=== PATIENT | female | born 1995 | race Caucasian/White ===

== ENCOUNTER 2016-09-29 11:20 | Outpatient (CLI) | payer OTHER ==
[~2016-09-29] VITALS: Ht 157.5 cm; Wt 88.3 kg
[2016-09-29 11:50] VITALS: BP 115/68; PULSE 85; RESP 18; Ht 157.5 cm; Wt 88.3 kg
--- NOTE | 2016-09-29 12:15 | RADRPT ---
PROCEDURE: OB ultrasound for biophysical profile CLINICAL INDICATION: Post dates. TECHNIQUE: Multiple sonographic images of the pelvis were obtained. Transabdominal view of the gr avid uterus are available for review. The images were reviewed on a PACS workstation. COMPARISON: None FINDINGS: breathing movement = 2/2 tone = 2/2 motion = 2/2 Quantitative amniotic fluid volume = 2/2 CHRISTIANO = 9.9 cm Single live intrauterine with cardiac activity at 156 beats per minute. There is a anterior placenta without previa. IMPRESSION: 1. Single living intrauterine gestation in cephalic position. 2. Biophysical profile = 8. 3. CHRISTIANO = 9.9 cm. RPTAT: [facility] Physician Lobo Date Time Electronically viewed and signed by Irwin Darby Physician on 09/29/2016 12:14 /
--- NOTE | 2016-09-29 12:34 | RADRPT ---
PROCEDURE: US OB. CLINICAL INDICATION: Size and dates TECHNIQUE: Multiple sonographic images of the pelvis and gravid uterus were obtained. The images were reviewed on a PACS workstation. COMPARISON: No prior studies are available for comparison. FINDINGS: There is a single viable intrauterine gestation. Cardiac activity is present with 152 beats per min aldo. There is a vertex presentation. The placenta is anterior. There is no evidence for an abruption or placenta previa. Measurements were made in order to determine age. The results are as follows: BPD =9.6 cm HC =33.4 cm AC =36.2 cm FL =7.3 cm Estimated gestational age of approximately 38 weeks and 5 days based on ultrasound measurements. Clinical age: 40 weeks and 3 days. The estimated date of delivery is 10/08/16, based on ultrasound measurements. The EFW = 3702 g, 50%, based on LMP age. RPTAT: AA IMPRESSION: Single viable intrauterine gestation of approximately 38 weeks and 5 days based on ultrasound measu rements. Smaller than clinical age by approximately 2 weeks. .Abdi Patton MD, MD Date Time Electronically viewed and signed by .Abdi Patton MD, on 09/29/2016 12:33 .S/
== END 2016-09-29 13:12 | disposition home or self-care (01) ==
LOC: OBT 11:20 → L-D 11:20 → OBT 13:12
PROVIDERS: ATTEND Obstetrics & Gynecology
DX: O48.0 Post-term pregnancy (principal); Z3A.40 40 weeks gestation of pregnancy
CPT/HCPCS: 76815; 76818; Z7500; G0463

== ENCOUNTER 2016-09-30 17:00 | Inpatient (IN) | payer OTHER ==
[~2016-09-30] VITALS: Ht 157.5 cm; Wt 87.6 kg
[2016-09-30 17:52] VITALS: Ht 157.5 cm; Wt 87.6 kg
[2016-09-30 17:53] VITALS: BP 111/61; PULSE 77; RESP 18
[2016-09-30] MEDS ORDERED: OXYTOCIN 30 UNITS/LR 500 ML IV SCH ×3 (18:00→21:00)
[2016-09-30] MEDS ORDERED: METHYLERGONOVINE 0.2 MG INJ IM PRN (18:00)
[2016-09-30] MEDS ORDERED: IBUPROFEN 600 MG TAB PO PRN (18:00)
[2016-09-30] MEDS ORDERED: MISOPROSTOL 200 MCG TAB PR PRN (18:00)
[2016-09-30] MEDS ORDERED: CARBOPROST 250 MCG INJ IM PRN (18:00)
[2016-09-30] MEDS ORDERED: OXYTOCIN 30 UNITS/LR 500 ML IV PRN (18:00)
[2016-09-30] MEDS ORDERED: BUTORPHANOL 2 MG INJ IV PRN (18:00)
[2016-09-30] MEDS ORDERED: LIDOCAINE 1% (MPF) 30 ML INJ INJ PRN (18:00)
[2016-09-30] MEDS: LACTATED RINGER'S 1,000 ML IV SCH (18:16)
[2016-09-30 18:48] LABS: ADD SCAN DIFF NO
[2016-09-30 18:49] LABS: BASOPHILS % 0.1 % (0.0-2.0); EOSINOPHILS % 0.5 % (0.0-7.0); HEMATOCRIT 30.3 % (37.0-47.0); HEMOGLOBIN 9.8 g/dl (12.0-16.0); LYMPHOCYTES # 1.6 10^3/ul (0.8-2.9); LYMPHOCYTES % 20.8 % (15.0-51.0); MEAN CORPUSCULAR HEMOGLOBIN 27.2 pg (29.0-33.0); MEAN CORPUSCULAR HGB CONC 32.3 g/dl (32.0-37.0); MEAN CORPUSCULAR VOLUME 84.2 fl (82.0-101.0); MEAN PLATELET VOLUME 9.9 fl (7.4-10.4); MONOCYTE # 0.5 10^3/ul (0.3-0.9); MONOCYTES % 6.8 % (0.0-11.0); NEUTROPHIL # 5.4 10^3/ul (1.6-7.5); NEUTROPHILS % 71.1 % (39.0-77.0); PLATELET COUNT 239 10^3/UL (140-415); RED CELL DISTRIBUTION WIDTH 13.9 % (11.5-14.5); WHITE BLOOD COUNT 7.6 10^3/ul (4.8-10.8)
[2016-09-30 19:00] LABS: INR 0.84; PROTIME 11.5 Sec (12.2-14.2); PT RATIO 0.9
[2016-09-30 19:01] LABS: PARTIAL THROMBOPLASTIN TIME 24.6 Sec (25.0-35.0)
[2016-09-30 20:22] LABS: BARBITURATES Negative (NEGATIVE); BENZODIAZEPINES Negative (NEGATIVE); CANNABINOIDS Negative (NEGATIVE)
[2016-09-30 20:23] LABS: COCAINE Negative (NEGATIVE)
[2016-09-30 20:24] LABS: OPIATES Negative (NEGATIVE)
--- NOTE | 2016-09-30 22:36 | HP ---
Date/Time of Note Date/Time of Note DATE: 09/30/16 TIME: 22:28 OB - History Hx of Present Free Text/Dictation 21 yo P0 @ 39.6 wks came for IOL, secondary PROM Last Menstrual Period: Apr 21, 2016 Estimated Due Date: Sep 26, 2016 : 1 Para: 0 Care: Good Care Past Family/Social History * Past Medical, Surgical, Family and Obstetric Histories reviewed from chart. Blood Type: A+ Rubella: immune RPR/VDRL: Negative GBS Status: Negative HBsAG: Negative OB Admission Exam Vital Signs Vital Signs Vital Signs Date Time Temp Pulse Resp B/P Pulse Ox O2 Delivery O2 Flow Rate FiO2 09/30/16 17:53 98.3 77 18 111/61 Room Air Physical Exam HEENT: WNL Abdomen: WNL Cervical Dilatation: 1cm Effacement: 50% Station: -3 Membranes: Ruptured Amniotic Fluid: Clear Accelerations: Accelerations Present Decelerations: Late Decelarations Varibility: Moderate Contractions on Admission: 6-10 Minutes Apart Intensity: Mild Last 72 hours Lab Results CBC & BMP 09/30/16 18:10 OB Assessment/Plan Other Assessment: When patient first came in, she had been PROM'd since 6am. Her FHT had some occasional late decels with mod variability and intermittent accels. After continued observation, decelerations resolved, and pitocin was started. FHT is now Cat I Other plan: monitor FHT, if it continues to be Category I, continue to increase pitocin per protocol VEDA HEMPHILL MD Sep 30, 2016 22:36
[2016-09-30] MEDS: LACTATED RINGER'S 1,000 ML IV PRN (23:25)
[2016-09-30] MEDS ORDERED: FENTAnyl 2MCG/ML-ROPIV 0.2% 100 ML ONE (23:37)
[2016-10-01] MEDS: LACTATED RINGER'S 1,000 ML IV PRN (00:22)
[2016-10-01] MEDS ORDERED: ONDANSETRON 4 MG INJ IV PRN ×3 (00:30→21:00)
[2016-10-01] MEDS ORDERED: HYDROmorphONE 1 MG/ML SYG IV PRN ×5 (00:30→21:00)
[2016-10-01] MEDS ORDERED: DIPHENHYDRAMINE 50 MG INJ IV PRN ×3 (00:30→21:00)
[2016-10-01] MEDS ORDERED: NALOXONE (0.4 MG/ML) INJ IV PRN ×2 (00:30→21:00)
[2016-10-01] MEDS: LACTATED RINGER'S 1,000 ML IV SCH ×4 (02:00→17:32)
[2016-10-01] MEDS ORDERED: AMPICILLIN 2 GM/NS (PMX) 100 ML IV ONE (06:00)
[2016-10-01] MEDS: FENTAnyl 2MCG/ML-ROPIV 0.2% 100 ML BAG EPI SCH ×2 (07:09→14:37)
[2016-10-01] MEDS: AMPICILLIN 1 GM/NS (PMX) 50 ML IV SCH ×3 (09:36→17:32)
[2016-10-01] MEDS ORDERED: MINERAL OIL LIGHT 10 ML VIAL TOP STA (18:07)
[2016-10-01] MEDS ORDERED: CEFAZOLIN 2 GM/50 ML (PMX) 50 ML IV SCH (19:30)
[2016-10-01] MEDS ORDERED: morphine SULFATE/PF (10 MG/10 ML) INJ ONE (19:32)
--- NOTE | 2016-10-01 19:44 | HP ---
Date/Time of Note Date/Time of Note DATE: 10/01/16 TIME: 19:21 OB - History Hx of Present Free Text/Dictation 21 years old female admitted to [facility] [place] at 39 weeks and 6 days in early labor premature rupture of membranes as of 1699September 30 ,on admission pelvic examination carried out, cervical dilatation at 2 cm 70% effacement vertex presentation at -2 -3 station labor augmentation started with Pitocin IV infusion and patient was covered with antibiotics ampicillin 2 g every 6 hours patient continue to progress to complete cervical dilatation at [id number] 01 but at the second stage of labor in spite of good and vigorous pushing over 3 hours vertex did not descend below -2 station and presenting part developed a large caput lack of progress was discussed with her and asked if she would like to continue pushing more, patient after consultation with the family declined further trial of labor at second stage and requested C- section delivery she is being prepared for the operation she was informed regarding the complication of the surgery including bowel bladder injury infection hemorrhage and wound hematoma she would like to proceed with the procedure Chief Complaint: Premature rupture of membrane in labor Estimated Due Date: Oct 01, 2016 : 1 Para: 0 Ultrasounds: Normal mid trimester US Obstetrical Complications: None Medical Complications: None Past Family/Social History * Past Medical, Surgical, Family and Obstetric Histories reviewed from chart. Rubella: immune RPR/VDRL: Negative GBS Status: Negative HBsAG: Negative OB Admission Exam Vital Signs Vital Signs Vital Signs Date Time Temp Pulse Resp B/P Pulse Ox O2 Delivery O2 Flow Rate FiO2 09/30/16 17:53 98.3 77 18 111/61 Room Air Physical Exam HEENT: WNL Heart: Rhythm Normal Abdomen: WNL Reflexes: Normal Cervical Dilatation: 10cm Effacement: 100% Station: -1 Membranes: Ruptured Amniotic Fluid: Clear Heart Rate: 130's Accelerations: Accelerations Present Decelerations: Variable Decelerations Varibility: Marked Contractions on Admission: < 5 Minutes Apart Intensity: Firm Last 72 hours Lab Results CBC & BMP 09/30/16 18:10 OB Assessment/Plan Reason for admission: active labor Plan: Section, Other (Primary for failure to progress and descend second stage of labor over 3-1/2 hours of pushing decline further continuation) RAHEEM JOSÉ MD Oct 01, 2016 19:32
[2016-10-01] MEDS ORDERED: METOCLOPRAMIDE 10 MG INJ ONE (19:49)
[2016-10-01] MEDS ORDERED: KETOROLAC 30 MG INJ ONE (19:49)
[2016-10-01] MEDS ORDERED: FENTAnyl 50 MCG/ML VIAL ONE (19:57)
[2016-10-01] MEDS ORDERED: METOCLOPRAMIDE 10 MG INJ IV PRN (21:00)
[2016-10-01] MEDS ORDERED: MEPERIDINE 25 MG INJ IV PRN (21:00)
[2016-10-01] MEDS ORDERED: KETOROLAC 30 MG INJ IV PRN (21:00)
[2016-10-01] MEDS ORDERED: HYDROmorphONE (0.2 MG/ML) 10ML SYG IV PRN ×3 (21:00)
[2016-10-01] MEDS: CEFAZOLIN 2 GM/50 ML (PMX) 50 ML IVPB SCH (21:33)
[2016-10-01 23:30] VITALS: BP 123/71; PULSE 85; RESP 20
[2016-10-02] MEDS ORDERED: OXYTOCIN 30 UNITS/LR 500 ML IV PRN
[2016-10-02] MEDS ORDERED: CARBOPROST 250 MCG INJ IM PRN
[2016-10-02] MEDS ORDERED: MISOPROSTOL 200 MCG TAB PR PRN
[2016-10-02] MEDS ORDERED: METHYLERGONOVINE 0.2 MG INJ IM PRN
[2016-10-02] MEDS ORDERED: LANOLIN 7 GM TUBE TOP PRN
[2016-10-02] MEDS ORDERED: CEFAZOLIN 1 GM/50 ML (PMX) 50 ML IVPB SCH
[2016-10-02] MEDS: OXYTOCIN 30 UNITS/LR 500 ML IV SCH ×2 (01:42→06:09)
[2016-10-02] MEDS ORDERED: CEFAZOLIN 1 GM/50 ML (PMX) 50 ML IVPB ONE (03:30)
[2016-10-02 04:00] VITALS: BP 108/60; PULSE 87; RESP 18
--- NOTE | 2016-10-02 05:10 | OPR ---
DATE OF OPERATION: 10/01/2016 PREOPERATIVE DIAGNOSIS: Intrauterine at 39 weeks and 6 days' gestation, failure to progres s, second stage of labor, failure to descend. POSTOPERATIVE DIAGNOSIS: Intrauterine at 39 weeks and 6 days' gestation, failure to progre ss, second stage of labor, failure to descend. OPERATION PERFORMED: Primary transverse low cervical section. SURGEON: Raheem José MD FEATHER SHAPER: Epi Garcia MD ANESTHESIA: Epidural. ANESTHESIOLOGIST: Karina Fiore MD FINDINGS: Live baby girl with Apgars of 9 and 9. DETAILS OF THE PROCEDURE: Under satisfactory spinal anesthesia, the patient was prepped and draped and placed in the supine position, tilted to the left. Pfannenstiel incision was made, and incision was carried through the subcutaneous tissue. Bleeders brought under control with electrocautery. Fascia incised to the length of the incision. Rectus muscle divided in the midline. Peritoneum exp osed and entered through a transverse incision. Exploration of abdomen revealed a gravid uterus at term, normal appearing tubes and ovaries. Bladder flap was developed. Transverse incision was made on the lower segment of the uterus. A live baby girl was delivered from wedged in vertex in occipu t posterior with a large caput. Naso-oropharyngeal suction was performed. Cord was clamped after i t stopped pulsation and baby handed to the team for immediate attention. The patient recei dotty 20 units of Pitocin. Placenta delivered manually intact. Uterine cavity cleaned with wet spong e and drainage established. Uterus was closed in 2 layers using Monocryl #1 in continuous fashion. Peritoneal cavity irrigated with warm saline. Sponge, needle and instrument reported to be correct . Abdominal peritoneum closed with 2-0 chromic catgut continuously. Rectus muscle approximated wit h few interrupted 2-0 chromic catgut. Fascia closed with #1 PDS in a continuous fashion. Subcutane ous tissue approximated with 2-0 chromic catgut. The skin closed with wayne. Estimated blood loss 600 mL to 700 m. Urine bag contained 200 mL of clear urine. Patient tolerated the procedure well and transferred to the recovery room in a good condition. Dictated By: RAHEEM JOSÉ MD HF/NTS Conf#: [id number] DID#: [id number]
[2016-10-02] MEDS ORDERED: LACTATED RINGER'S 1,000 ML IV SCH (07:00)
--- NOTE | 2016-10-02 07:14 | PN ---
Date/Time of Note Date/Time of Note DATE: 10/02/16 TIME: 07:12 Assessment/Plan VTE Prophylaxis VTE Prophylaxis Intervention: ambulation Lines/Catheters IV Catheter Type (from Nrsg): Peripheral IV Subjective 24 Hr Interval Summary Free Text/Dictation Anesthesia note: A 21 year female s/p C-S with duramorph for post op pain POD #1 is doing fine, no complication, pain is controlled, no N/V itching, headache. back is clean. care per surgery team. Exam/Review of Systems Vital Signs Vitals Vital Signs Date Time Temp Pulse Resp B/P Pulse Ox O2 Delivery O2 Flow Rate FiO2 10/02/16 04:00 98.0 87 18 108/60 Room Air Intake and Output 10/01/16 10/01/16 10/02/16 15:00 23:00 07:00 Intake Total 1482.5 ml 2185 ml 625 ml Output Total 243 ml 600 ml 120 ml Balance 1239.5 ml 1585 ml 505 ml Results Result Diagram: 09/30/16 1810 Medications Medications Current Medications Lactated Ringer's 1,000 ml @ 125 mls/hr Q8H IV Last administered on 10/01/16t 17:32; Admin Dose 125 MLS/HR; Start 09/30/16 at 18:00 Oxytocin/Lactated Ringer's 500 ml @ 0 mls/hr ONCE PRN IV For Hemorrhage Management; Start 09/30/16 at 18:00 Methylergonovine Maleate (Methergine) 0.2 mg ONCE PRN IM VAGINAL BLEEDING; Start 09/30/16 at 18:00 Naloxone HCl (Narcan) 0.1 mg Q2M PRN IV FOR RESP RATE 8 OR LESS; Start 10/01/16 at 21:00; Stop 10/02/16 at 20:59 Ketorolac Tromethamine (Toradol) 30 mg Q6H PRN IV PAIN; Start 10/01/16 at 21:00 ; Stop 10/02/16 at 20:59 Hydromorphone HCl (Dilaudid) 1 mg Q3H PRN IV BREAKTHROUGH PAIN; Start 10/01/16 at 21:00; Stop 10/02/16 at 20:59 Hydromorphone HCl (Dilaudid) 0.2 mg Q3H PRN IV PAIN LEVEL 1-5; Start 10/01/16 at 21:00; Stop 10/02/16 at 20:59 Hydromorphone HCl (Dilaudid) 0.4 mg Q3H PRN IV PAIN LEVEL 6-10; Start 10/01/16 at 21:00; Stop 10/02/16 at 20:59 Diphenhydramine HCl (Benadryl) 25 mg Q6H PRN IV ITCHING; Start 10/01/16 at 21:00 ; Stop 10/02/16 at 20:59 Ondansetron HCl 4 mg 4 mg Q6H PRN IV NAUSEA AND/OR VOMITING; Start 10/01/16 at 21:00; Stop 10/02/16 at 20:59 Cefazolin Sodium/ Dextrose (Ancef 2 Gm/50 ml (Pmx)) 50 ml @ 100 mls/hr Q6 IVPB ; Start 10/02/16 at 06:00; Stop 10/03/16 at 00:29 Acetaminophen/ Codeine Phosphate (Tylenol No.3) 1 tab Q4H PRN PO PAIN LEVEL 4-6 ; Start 10/02/16 at 21:00 Acetaminophen/ Codeine Phosphate (Tylenol No.3) 2 tab Q4H PRN PO PAIN LEVEL 7- 10; Start 10/02/16 at 21:00 Oxycodone/ Acetaminophen (Percocet (5/ 325)) 1 tab Q4H PRN PO PAIN LEVEL 4-6; Start 10/02/16 at 21:00 Oxycodone/ Acetaminophen (Percocet (5/ 325)) 2 tab Q4H PRN PO PAIN LEVEL 7-10; Start 10/02/16 at 21:00 Ibuprofen (Motrin) 600 mg Q6 PO ; Start 10/03/16 at 00:00 Simethicone (Mylicon) 160 mg Q8H PRN PO DISTENSION/GAS/BLOATING; Start 10/02/16 at 00:00 Senna/Docusate Sodium (Senokot-S) 1 tab BID PO ; Start 10/02/16 at 09:00 Diphtheria/ Tetanus/Acell Pertussis 0.5 ml 0.5 ml ONCE ONCE IM* ; Start at 09:00; Stop 10/04/16 at 09:01 Oxytocin/Lactated Ringer's 500 ml @ 0 mls/hr ONCE PRN IV For Hemorrhage Management; Start 10/02/16 at 00:00 Methylergonovine Maleate (Methergine) 0.2 mg ONCE PRN IM VAGINAL BLEEDING; Start 10/02/16 at 00:00 Carboprost Tromethamine (Hemabate) 250 mcg ONCE PRN IM VAGINAL BLEEDING; Start 10/02/16 at 00:00 Misoprostol 1000 mcg 1,000 mcg ONCE PRN [place] VAGINAL BLEEDING; Start 10/02/16 at 00 :00 Oxytocin/Lactated Ringer's 500 ml @ 125 mls/hr Q4H IV Last administered on 10/02 06:09; Admin Dose 125 MLS/HR; Start 10/01/16 at 23:48 Lactated Ringer's (Lr) 1,000 ml @ 250 mls/hr Q4H IV Last administered on 06:52; Admin Dose 250 MLS/HR; Start 10/02/16 at 07:00 Furosemide (Lasix) 40 mg ONCE ONCE IV ; Start 10/02/16 at 07:30; Stop 10/02/16 at 07:31; Status ITZ MERCADO MD Oct 02, 2016 07:14
[2016-10-02 07:47] LABS: ADD SCAN DIFF NO
[2016-10-02 07:54] LABS: BASOPHILS % 0.1 % (0.0-2.0); HEMATOCRIT 22.7 % (37.0-47.0); HEMOGLOBIN 7.3 g/dl (12.0-16.0); LYMPHOCYTES # 1.7 10^3/ul (0.8-2.9); LYMPHOCYTES % 11.8 % (15.0-51.0); MEAN CORPUSCULAR HEMOGLOBIN 27.2 pg (29.0-33.0); MEAN CORPUSCULAR HGB CONC 32.2 g/dl (32.0-37.0); MEAN CORPUSCULAR VOLUME 84.7 fl (82.0-101.0); MEAN PLATELET VOLUME 10.4 fl (7.4-10.4); MONOCYTE # 0.8 10^3/ul (0.3-0.9); MONOCYTES % 5.8 % (0.0-11.0); NEUTROPHIL # 11.4 10^3/ul (1.6-7.5); NEUTROPHILS % 81.7 % (39.0-77.0); PLATELET COUNT 187 10^3/UL (140-415); RED BLOOD COUNT 2.68 10^6/ul (4.20-5.40); RED CELL DISTRIBUTION WIDTH 14.3 % (11.5-14.5)
[2016-10-02 08:00] VITALS: BP 120/55; PULSE 82; RESP 18
[2016-10-02] MEDS ORDERED: FUROSEMIDE 40 MG INJ IV ONE (08:00)
[2016-10-02] MEDS ORDERED: FUROSEMIDE 20 MG INJ IV ONE (08:30)
--- NOTE | 2016-10-02 08:56 | PN ---
Date/Time of Note Date/Time of Note DATE: 10/02/16 TIME: 08:50 OB Subjective Subjective Subjective Post day 1 Afebrile vital signs stable, abdomen soft incision dry uterus for lochia moderate, total urine output on October 01 1425 and 98 so for 843 cc, feeling well and alert minimal incisional pain ambulation recommended we will continue monitor urine output after 20 mg of Lasix. Last report she has urinated 50 cc in 1 hour. Laboratory Tests Test 10/02/16 06:30 White Blood Count 14.010^3/ul Red Blood Count 2.6810^6/ul Hemoglobin 7.3g/dl Hematocrit 22.7% Mean Corpuscular Volume 84.7fl Mean Corpuscular Hemoglobin 27.2pg Mean Corpuscular Hemoglobin Concent 32.2g/dl Red Cell Distribution Width 14.3% Platelet Count 88579^3/UL Mean Platelet Volume 10.4fl Neutrophils % 81.7% Lymphocytes % 11.8% Monocytes % 5.8% Eosinophils % 0.0% Basophils % 0.1% Nucleated Red Blood Cells % 0.0/100WBC Neutrophils # 11.410^3/ul Lymphocytes # 1.710^3/ul Monocytes # 0.810^3/ul Eosinophils # 0.010^3/ul Basophils # 0.010^3/ul Nucleated Red Blood Cells # 0.010^3/ul Current Medications Medications (Trade) Dose Ordered Sig/Joaquina Route PRN Reason Start Time Stop Time Status Last Admin Dose Admin Lactated Ringer's (Lr) 1,000 ml @ 125 mls/hr Q8H IV 09/30/16 18:00 10/01/16 17:32 Butorphanol Tartrate (Stadol) 2 mg Q2H PRN IV PAIN 09/30/16 18:00 10/01/16 23:58 DC Lidocaine 30 ml 30 ml ONCE PRN INJ EPISIOTOMY/TEARING 09/30/16 18:00 10/01/16 23:58 DC Oxytocin/Lactated Ringer's 500 ml @ 125 mls/hr ONCE -MAY REPEAT X1 IV 09/30/16 18:00 10/01/16 23:58 DC 10/01/16 21:31 Oxytocin/Lactated Ringer's 500 ml @ 125 mls/hr ONCE IV 09/30/16 18:00 10/01/16 23:58 DC Ibuprofen 600 mg 600 mg ONCE PRN PO Mild Pain (Pain Score 1-3) 09/30/16 18:00 10/01/16 23:58 DC Lactated Ringer's 1,000 ml @ 2,000 mls/hr Q30M PRN IV PRE-EPIDURAL BOLUS 09/30/16 18:00 10/01/16 23:58 DC 10/01/16 00:22 Oxytocin/Lactated Ringer's 500 ml @ 0 mls/hr ONCE PRN IV For Hemorrhage Management 09/30/16 18:00 Methylergonovine Maleate (Methergine) 0.2 mg ONCE PRN IM VAGINAL BLEEDING 09/30/16 18:00 Carboprost Tromethamine (Hemabate) 250 mcg ONCE PRN IM VAGINAL BLEEDING 09/30/16 18:00 10/01/16 23:58 DC Misoprostol 1000 mcg 1,000 mcg ONCE PRN [place] VAGINAL BLEEDING 09/30/16 18:00 10/01/16 23:58 DC Oxytocin/Lactated Ringer's 500 ml @ 0 mls/hr TITRATE IV 09/30/16 21:00 10/01/16 23:58 DC 09/30/16 21:02 Fentanyl/ Ropivacaine 100 ml @ ud STK-MED ONCE .ROUTE 09/30/16 23:37 09/30/16 23:38 DC Naloxone HCl (Narcan) 0.1 mg Q2M PRN IV FOR RESP RATE 8 OR LESS 10/01/16 00:30 10/01/16 23:58 DC Hydromorphone HCl (Dilaudid) 0.2 mg Q3H PRN IV PAIN LEVEL 1-5 10/01/16 00:30 10/01/16 23:58 DC Hydromorphone HCl (Dilaudid) 0.4 mg Q3H PRN IV PAIN LEVEL 6-10 10/01/16 00:30 10/01/16 23:58 DC Diphenhydramine HCl (Benadryl) 25 mg Q6H PRN IV ITCHING 10/01/16 00:30 10/01/16 23:58 DC Ondansetron HCl (Zofran Inj) 4 mg Q6H PRN IV NAUSEA AND/OR VOMITING 10/01/16 00:30 10/01/16 23:58 DC 10/01/16 13:02 Fentanyl/ Ropivacaine 100 ml 100 ml EPIDURAL INFUSION EPI 10/01/16 00:30 10/01/16 23:58 DC 10/01/16 14:37 Ampicillin 100 ml @ 100 mls/hr ONCE ONCE IV 10/01/16 06:00 10/01/16 06:59 DC 10/01/16 06:09 Ampicillin (Ampicillin 1 Gm/ NS (Pmx)) 50 ml @ 100 mls/hr Q4H IV 10/01/16 10:00 10/01/16 20:59 DC 10/01/16 17:32 Mineral Oil 30 ml 30 ml ONCE STAT TOP 10/01/16 18:07 10/01/16 18:17 DC Cefazolin Sodium/ Dextrose (Ancef 2 Gm/50 ml (Pmx)) 50 ml @ 100 mls/hr ONCE IV 10/01/16 19:30 10/01/16 23:58 DC Morphine Sulfate (Duramorph) 10 mg STK-MED ONCE .ROUTE 10/01/16 19:32 10/01/16 19:33 DC Metoclopramide HCl (Reglan) 10 mg STK-MED ONCE .ROUTE 10/01/16 19:49 10/01/16 19:50 DC Ketorolac Tromethamine (Toradol) 30 mg STK-MED ONCE .ROUTE 10/01/16 19:49 10/01/16 19:50 DC Fentanyl (Sublimaze) 100 mcg STK-MED ONCE .ROUTE 10/01/16 19:57 10/01/16 19:58 DC Hydromorphone HCl (Dilaudid (Rec)) 0.2 mg PACU ORDER PRN IV MILD PAIN LEVEL 1-3 10/01/16 21:00 10/01/16 23:58 DC Hydromorphone HCl (Dilaudid (Rec)) 0.4 mg PACU ORDER PRN IV MODERATE PAIN LEVEL 4-6 10/01/16 21:00 10/01/16 23:58 DC Hydromorphone HCl (Dilaudid (Rec)) 0.6 mg PACU ORDER PRN IV SEVERE PAIN LEVEL 7-10 10/01/16 21:00 10/01/16 23:58 DC Ondansetron HCl (Zofran Inj) 4 mg PACU ORDER PRN IV NAUSEA AND/OR VOMITING 10/01/16 21:00 10/01/16 23:58 DC Metoclopramide HCl (Reglan) 10 mg PACU ORDER PRN IV NAUSEA AND/OR VOMITING 10/01/16 21:00 10/01/16 23:58 DC Meperidine HCl (Demerol) 25 mg PACU ORDER PRN IV POST-OP RIGORS 10/01/16 21:00 10/01/16 23:58 DC Diphenhydramine HCl (Benadryl) 25 mg PACU ORDER PRN IV PRURITUS 10/01/16 21:00 10/01/16 23:58 DC Naloxone HCl (Narcan) 0.1 mg Q2M PRN IV FOR RESP RATE 8 OR LESS 10/01/16 21:00 10/02/16 20:59 Ketorolac Tromethamine (Toradol) 30 mg Q6H PRN IV PAIN 10/01/16 21:00 10/02/16 20:59 Hydromorphone HCl (Dilaudid) 1 mg Q3H PRN IV BREAKTHROUGH PAIN 10/01/16 21:00 10/02/16 20:59 Hydromorphone HCl (Dilaudid) 0.2 mg Q3H PRN IV PAIN LEVEL 1-5 10/01/16 21:00 10/02/16 20:59 Hydromorphone HCl (Dilaudid) 0.4 mg Q3H PRN IV PAIN LEVEL 6-10 10/01/16 21:00 10/02/16 20:59 Diphenhydramine HCl (Benadryl) 25 mg Q6H PRN IV ITCHING 10/01/16 21:00 10/02/16 20:59 Ondansetron HCl 4 mg 4 mg Q6H PRN IV NAUSEA AND/OR VOMITING 10/01/16 21:00 10/02/16 20:59 Cefazolin Sodium/ Dextrose (Ancef 2 Gm/50 ml (Pmx)) 50 ml @ 100 mls/hr Q6 IVPB 10/02/16 06:00 10/03/16 00:29 Acetaminophen/ Codeine Phosphate (Tylenol No.3) 1 tab Q4H PRN PO PAIN LEVEL 4-6 10/02/16 21:00 Acetaminophen/ Codeine Phosphate (Tylenol No.3) 2 tab Q4H PRN PO PAIN LEVEL 7-10 10/02/16 21:00 Oxycodone/ Acetaminophen (Percocet (5/ 325)) 1 tab Q4H PRN PO PAIN LEVEL 4-6 10/02/16 21:00 Oxycodone/ Acetaminophen (Percocet (5/ 325)) 2 tab Q4H PRN PO PAIN LEVEL 7-10 10/02/16 21:00 Ibuprofen (Motrin) 600 mg Q6 PO 10/03/16 00:00 Simethicone (Mylicon) 160 mg Q8H PRN PO DISTENSION/GAS/BLOATING 10/02/16 00:00 Senna/Docusate Sodium (Senokot-S) 1 tab BID PO 10/02/16 09:00 Lanolin (Qkc-U-Cefonu) 1 applic BEDSIDE MEDICATION PRN TOP BEDSIDE FOR MIKEL TO NIPPLES 10/02/16 00:00 10/02/16 05:18 Diphtheria/ Tetanus/Acell Pertussis 0.5 ml 0.5 ml ONCE ONCE IM* 10/04/16 09:00 10/04/16 09:01 Oxytocin/Lactated Ringer's 500 ml @ 0 mls/hr ONCE PRN IV For Hemorrhage Management 10/02/16 00:00 Methylergonovine Maleate (Methergine) 0.2 mg ONCE PRN IM VAGINAL BLEEDING 10/02/16 00:00 Carboprost Tromethamine (Hemabate) 250 mcg ONCE PRN IM VAGINAL BLEEDING 10/02/16 00:00 Misoprostol 1000 mcg 1,000 mcg ONCE PRN [place] VAGINAL BLEEDING 10/02/16 00:00 Cefazolin Sodium 50 ml @ 100 mls/hr ONCE IVPB 10/02/16 00:00 10/02/16 00:29 Cancel Oxytocin/Lactated Ringer's 500 ml @ 125 mls/hr Q4H IV 10/01/16 23:48 10/02/16 06:09 Cefazolin Sodium 50 ml @ 100 mls/hr ONCE ONCE IVPB 10/02/16 03:30 10/02/16 03:59 DC 10/02/16 03:36 Lactated Ringer's (Lr) 1,000 ml @ 250 mls/hr Q4H IV 10/02/16 07:00 10/02/16 11:00 4/8/17 06:52 Furosemide (Lasix) 40 mg ONCE ONCE IV 10/02/16 08:00 10/02/16 08:30 DC Furosemide (Lasix) 20 mg ONCE ONCE IV 10/02/16 08:30 10/02/16 08:40 DC RAHEEM JOSÉ MD Oct 02, 2016 08:56
[2016-10-02] MEDS: SENNA/DOCUSATE NA (8.6MG/50MG) TAB PO SCH ×2 (09:04→21:37)
[2016-10-02] MEDS: CEFAZOLIN 2 GM/50 ML (PMX) 50 ML IVPB SCH ×3 (09:09→21:38)
[2016-10-02] MEDS: LACTATED RINGER'S 1,000 ML IV SCH (12:21)
[2016-10-02 12:24] VITALS: BP 105/68; PULSE 78; RESP 14
[2016-10-02 15:46] VITALS: BP 116/71; PULSE 80; RESP 14
[2016-10-02 19:40] VITALS: BP 117/68; PULSE 74; RESP 18
[2016-10-02] MEDS ORDERED: ACETAMINOPHEN/CODEINE #3 TAB PO PRN ×2 (21:00)
[2016-10-02] MEDS ORDERED: OXYCODONE/ACETAMINOPHEN (5/325) TAB PO PRN ×2 (21:00)
[2016-10-03] MEDS: IBUPROFEN 600 MG TAB PO SCH ×4 (00:18→18:01)
[2016-10-03] MEDS: LACTATED RINGER'S 1,000 ML IV SCH (02:00)
[2016-10-03] MEDS: CEFAZOLIN 2 GM/50 ML (PMX) 50 ML IVPB SCH (03:46)
[2016-10-03 04:30] VITALS: BP 116/68; PULSE 79; RESP 18
[2016-10-03 08:34] VITALS: BP 101/68; PULSE 66; RESP 14
[2016-10-03] MEDS: SENNA/DOCUSATE NA (8.6MG/50MG) TAB PO SCH ×2 (09:00→21:00)
--- NOTE | 2016-10-03 16:15 | PN ---
Date/Time of Note Date/Time of Note DATE: 10/03/16 TIME: 16:14 OB Subjective Subjective Subjective Post day 1 Afebrile vital signs are stable, abdomen soft incision dry mildly distended bowel sounds present able to pass flatus uterus firm lochia normal extremity normal ambulation recommended. Current Medications Medications (Trade) Dose Ordered Sig/Joaquina Route PRN Reason Start Time Stop Time Status Last Admin Dose Admin Lactated Ringer's (Lr) 1,000 ml @ 125 mls/hr Q8H IV 09/30/16 18:00 10/02/16 12:21 Butorphanol Tartrate (Stadol) 2 mg Q2H PRN IV PAIN 09/30/16 18:00 10/01/16 23:58 DC Lidocaine 30 ml 30 ml ONCE PRN INJ EPISIOTOMY/TEARING 09/30/16 18:00 10/01/16 23:58 DC Oxytocin/Lactated Ringer's 500 ml @ 125 mls/hr ONCE -MAY REPEAT X1 IV 09/30/16 18:00 10/01/16 23:58 DC 10/01/16 21:31 Oxytocin/Lactated Ringer's 500 ml @ 125 mls/hr ONCE IV 09/30/16 18:00 10/01/16 23:58 DC Ibuprofen 600 mg 600 mg ONCE PRN PO Mild Pain (Pain Score 1-3) 09/30/16 18:00 10/01/16 23:58 DC Lactated Ringer's 1,000 ml @ 2,000 mls/hr Q30M PRN IV PRE-EPIDURAL BOLUS 09/30/16 18:00 10/01/16 23:58 DC 10/01/16 00:22 Oxytocin/Lactated Ringer's 500 ml @ 0 mls/hr ONCE PRN IV For Hemorrhage Management 09/30/16 18:00 Methylergonovine Maleate (Methergine) 0.2 mg ONCE PRN IM VAGINAL BLEEDING 09/30/16 18:00 Carboprost Tromethamine (Hemabate) 250 mcg ONCE PRN IM VAGINAL BLEEDING 09/30/16 18:00 10/01/16 23:58 DC Misoprostol 1000 mcg 1,000 mcg ONCE PRN LA VAGINAL BLEEDING 09/30/16 18:00 10/01/16 23:58 DC Oxytocin/Lactated Ringer's 500 ml @ 0 mls/hr TITRATE IV 09/30/16 21:00 10/01/16 23:58 DC 09/30/16 21:02 Fentanyl/ Ropivacaine 100 ml @ ud STK-MED ONCE .ROUTE 09/30/16 23:37 09/30/16 23:38 DC Naloxone HCl (Narcan) 0.1 mg Q2M PRN IV FOR RESP RATE 8 OR LESS 10/01/16 00:30 10/01/16 23:58 DC Hydromorphone HCl (Dilaudid) 0.2 mg Q3H PRN IV PAIN LEVEL 1-5 10/01/16 00:30 10/01/16 23:58 DC Hydromorphone HCl (Dilaudid) 0.4 mg Q3H PRN IV PAIN LEVEL 6-10 10/01/16 00:30 10/01/16 23:58 DC Diphenhydramine HCl (Benadryl) 25 mg Q6H PRN IV ITCHING 10/01/16 00:30 10/01/16 23:58 DC Ondansetron HCl (Zofran Inj) 4 mg Q6H PRN IV NAUSEA AND/OR VOMITING 10/01/16 00:30 10/01/16 23:58 DC 10/01/16 13:02 Fentanyl/ Ropivacaine 100 ml 100 ml EPIDURAL INFUSION EPI 10/01/16 00:30 10/01/16 23:58 DC 10/01/16 14:37 Ampicillin 100 ml @ 100 mls/hr ONCE ONCE IV 10/01/16 06:00 10/01/16 06:59 DC 10/01/16 06:09 Ampicillin (Ampicillin 1 Gm/ NS (Pmx)) 50 ml @ 100 mls/hr Q4H IV 10/01/16 10:00 10/01/16 20:59 DC 10/01/16 17:32 Mineral Oil 30 ml 30 ml ONCE STAT TOP 10/01/16 18:07 10/01/16 18:17 DC Cefazolin Sodium/ Dextrose (Ancef 2 Gm/50 ml (Pmx)) 50 ml @ 100 mls/hr ONCE IV 10/01/16 19:30 10/01/16 23:58 DC Morphine Sulfate (Duramorph) 10 mg STK-MED ONCE .ROUTE 10/01/16 19:32 10/01/16 19:33 DC Metoclopramide HCl (Reglan) 10 mg STK-MED ONCE .ROUTE 10/01/16 19:49 10/01/16 19:50 DC Ketorolac Tromethamine (Toradol) 30 mg STK-MED ONCE .ROUTE 10/01/16 19:49 10/01/16 19:50 DC Fentanyl (Sublimaze) 100 mcg STK-MED ONCE .ROUTE 10/01/16 19:57 10/01/16 19:58 DC Hydromorphone HCl (Dilaudid (Rec)) 0.2 mg PACU ORDER PRN IV MILD PAIN LEVEL 1-3 10/01/16 21:00 10/01/16 23:58 DC Hydromorphone HCl (Dilaudid (Rec)) 0.4 mg PACU ORDER PRN IV MODERATE PAIN LEVEL 4-6 10/01/16 21:00 10/01/16 23:58 DC Hydromorphone HCl (Dilaudid (Rec)) 0.6 mg PACU ORDER PRN IV SEVERE PAIN LEVEL 7-10 10/01/16 21:00 10/01/16 23:58 DC Ondansetron HCl (Zofran Inj) 4 mg PACU ORDER PRN IV NAUSEA AND/OR VOMITING 10/01/16 21:00 10/01/16 23:58 DC Metoclopramide HCl (Reglan) 10 mg PACU ORDER PRN IV NAUSEA AND/OR VOMITING 10/01/16 21:00 10/01/16 23:58 DC Meperidine HCl (Demerol) 25 mg PACU ORDER PRN IV POST-OP RIGORS 10/01/16 21:00 10/01/16 23:58 DC Diphenhydramine HCl (Benadryl) 25 mg PACU ORDER PRN IV PRURITUS 10/01/16 21:00 10/01/16 23:58 DC Naloxone HCl (Narcan) 0.1 mg Q2M PRN IV FOR RESP RATE 8 OR LESS 10/01/16 21:00 10/02/16 20:59 DC Ketorolac Tromethamine (Toradol) 30 mg Q6H PRN IV PAIN 10/01/16 21:00 10/02/16 20:59 DC 10/02/16 19:49 Hydromorphone HCl (Dilaudid) 1 mg Q3H PRN IV BREAKTHROUGH PAIN 10/01/16 21:00 10/02/16 20:59 DC Hydromorphone HCl (Dilaudid) 0.2 mg Q3H PRN IV PAIN LEVEL 1-5 10/01/16 21:00 10/02/16 20:59 DC Hydromorphone HCl (Dilaudid) 0.4 mg Q3H PRN IV PAIN LEVEL 6-10 10/01/16 21:00 10/02/16 20:59 DC Diphenhydramine HCl (Benadryl) 25 mg Q6H PRN IV ITCHING 10/01/16 21:00 10/02/16 20:59 DC Ondansetron HCl 4 mg 4 mg Q6H PRN IV NAUSEA AND/OR VOMITING 10/01/16 21:00 10/02/16 20:59 DC Cefazolin Sodium/ Dextrose (Ancef 2 Gm/50 ml (Pmx)) 50 ml @ 100 mls/hr Q6 IVPB 10/02/16 06:00 10/03/16 00:29 DC 10/03/16 03:46 Acetaminophen/ Codeine Phosphate (Tylenol No.3) 1 tab Q4H PRN PO PAIN LEVEL 4-6 10/02/16 21:00 Acetaminophen/ Codeine Phosphate (Tylenol No.3) 2 tab Q4H PRN PO PAIN LEVEL 7-10 10/02/16 21:00 Oxycodone/ Acetaminophen (Percocet (5/ 325)) 1 tab Q4H PRN PO PAIN LEVEL 4-6 10/02/16 21:00 Oxycodone/ Acetaminophen (Percocet (5/ 325)) 2 tab Q4H PRN PO PAIN LEVEL 7-10 10/02/16 21:00 Ibuprofen (Motrin) 600 mg Q6 PO 10/03/16 00:00 10/03/16 13:16 Simethicone (Mylicon) 160 mg Q8H PRN PO DISTENSION/GAS/BLOATING 10/02/16 00:00 Senna/Docusate Sodium (Senokot-S) 1 tab BID PO 10/02/16 09:00 10/02/16 21:37 Lanolin (Xld-B-[id number]) 1 applic BEDSIDE MEDICATION PRN TOP BEDSIDE FOR MIKEL TO NIPPLES 10/02/16 00:00 10/02/16 05:18 Diphtheria/ Tetanus/Acell Pertussis 0.5 ml 0.5 ml ONCE ONCE IM* 10/04/16 09:00 10/04/16 09:01 Oxytocin/Lactated Ringer's 500 ml @ 0 mls/hr ONCE PRN IV For Hemorrhage Management 10/02/16 00:00 Methylergonovine Maleate (Methergine) 0.2 mg ONCE PRN IM VAGINAL BLEEDING 10/02/16 00:00 Carboprost Tromethamine (Hemabate) 250 mcg ONCE PRN IM VAGINAL BLEEDING 10/02/16 00:00 Misoprostol 1000 mcg 1,000 mcg ONCE PRN LA VAGINAL BLEEDING 10/02/16 00:00 Cefazolin Sodium 50 ml @ 100 mls/hr ONCE IVPB 10/02/16 00:00 10/02/16 00:29 Cancel Oxytocin/Lactated Ringer's 500 ml @ 125 mls/hr Q4H IV 10/01/16 23:48 10/02/16 06:09 Cefazolin Sodium 50 ml @ 100 mls/hr ONCE ONCE IVPB 10/02/16 03:30 10/02/16 03:59 DC 10/02/16 03:36 Lactated Ringer's (Lr) 1,000 ml @ 250 mls/hr Q4H IV 10/02/16 07:00 10/02/16 11:38 DC 10/02/16 06:52 Furosemide (Lasix) 40 mg ONCE ONCE IV 10/02/16 08:00 10/02/16 08:30 DC Furosemide (Lasix) 20 mg ONCE ONCE IV 10/02/16 08:30 10/02/16 08:40 DC 10/02/16 09:04 RAHEEM JOSÉ MD Oct 03, 2016 16:15
[2016-10-03 16:49] VITALS: BP 110/67; PULSE 76; RESP 16
[2016-10-03 19:45] VITALS: BP 104/62; PULSE 77; RESP 18
[2016-10-04] MEDS: IBUPROFEN 600 MG TAB PO SCH ×3 (00:22→12:14)
[2016-10-04] MEDS: OXYTOCIN 30 UNITS/LR 500 ML IV SCH ×5 (01:40→03:48)
[2016-10-04] MEDS: LACTATED RINGER'S 1,000 ML IV SCH ×3 (01:41→02:33)
[2016-10-04 04:30] VITALS: BP 106/58; PULSE 77; RESP 18
[2016-10-04 07:45] VITALS: BP 114/73; PULSE 74; RESP 18
[2016-10-04 08:08] LABS: ADD SCAN DIFF NO
[2016-10-04 08:20] LABS: ABNORMAL IP MESSAGE 1; HEMATOCRIT 21.5 % (37.0-47.0); MEAN CORPUSCULAR HEMOGLOBIN 26.6 pg (29.0-33.0); MEAN CORPUSCULAR HGB CONC 30.7 g/dl (32.0-37.0); MEAN CORPUSCULAR VOLUME 86.7 fl (82.0-101.0); MEAN PLATELET VOLUME 9.9 fl (7.4-10.4); PLATELET COUNT 185 10^3/UL (140-415); RED BLOOD COUNT 2.48 10^6/ul (4.20-5.40); RED CELL DISTRIBUTION WIDTH 14.7 % (11.5-14.5); WHITE BLOOD COUNT 8.6 10^3/ul (4.8-10.8)
[2016-10-04 08:27] LABS: HEMOGLOBIN 6.6 g/dl (12.0-16.0)
[2016-10-04] MEDS: SENNA/DOCUSATE NA (8.6MG/50MG) TAB PO SCH (08:52)
[2016-10-04] MEDS ORDERED: DIPHTH/TET/ACEL PERTUSS (ADULT) 0.5 ML VIAL IM* ONE (09:00)
[2016-10-04 11:37] LABS: LYMPHOCYTES # 1.6 10^3/ul (0.8-2.9); MONOCYTE # 0.5 10^3/ul (0.3-0.9); NEUTROPHIL # 6.5 10^3/ul (1.6-7.5)
[2016-10-04] MEDS ORDERED: SOD CHLORIDE 0.9% 250 ML IV* ONE (13:08)
--- NOTE | 2016-10-04 13:32 | PN ---
Date/Time of Note Date/Time of Note DATE: 10/04/16 TIME: 13:15 OB Subjective Subjective Subjective Post day 3 Afebrile vital sign stable, had 1 episode of lightheadedness while walking in bathroom otherwise stable the whole time, her hemoglobin today is 6.6 prior surgery her hemoglobin was 9.7, transfusion pros and cons discussed with her she agreed to receive 2 units of packed cell, her postoperative course otherwise has been uneventful ,on examination today her abdomen is soft with, incision dry, good bowel sounds she normal bowel movement, today Laboratory Tests Test 10/04/16 07:38 White Blood Count 8.610^3/ul Red Blood Count 2.4810^6/ul Hemoglobin 6.6g/dl Hematocrit 21.5% Mean Corpuscular Volume 86.7fl Mean Corpuscular Hemoglobin 26.6pg Mean Corpuscular Hemoglobin Concent 30.7g/dl Red Cell Distribution Width 14.7% Platelet Count 32839^3/UL Mean Platelet Volume 9.9fl Neutrophils % 75.0% Lymphocytes % 19.0% Monocytes % 6.0% Neutrophils # 6.510^3/ul Lymphocytes # 1.610^3/ul Monocytes # 0.510^3/ul Current Medications Medications (Trade) Dose Ordered Sig/Joaquina Route PRN Reason Start Time Stop Time Status Last Admin Dose Admin Lactated Ringer's (Lr) 1,000 ml @ 125 mls/hr Q8H IV 09/30/16 18:00 10/02/16 12:21 Butorphanol Tartrate (Stadol) 2 mg Q2H PRN IV PAIN 09/30/16 18:00 10/01/16 23:58 DC Lidocaine 30 ml 30 ml ONCE PRN INJ EPISIOTOMY/TEARING 09/30/16 18:00 10/01/16 23:58 DC Oxytocin/Lactated Ringer's 500 ml @ 125 mls/hr ONCE -MAY REPEAT X1 IV 09/30/16 18:00 10/01/16 23:58 DC 10/01/16 21:31 Oxytocin/Lactated Ringer's 500 ml @ 125 mls/hr ONCE IV 09/30/16 18:00 10/01/16 23:58 DC Ibuprofen 600 mg 600 mg ONCE PRN PO Mild Pain (Pain Score 1-3) 09/30/16 18:00 10/01/16 23:58 DC Lactated Ringer's 1,000 ml @ 2,000 mls/hr Q30M PRN IV PRE-EPIDURAL BOLUS 09/30/16 18:00 10/01/16 23:58 DC 10/01/16 00:22 Oxytocin/Lactated Ringer's 500 ml @ 0 mls/hr ONCE PRN IV For Hemorrhage Management 09/30/16 18:00 Methylergonovine Maleate (Methergine) 0.2 mg ONCE PRN IM VAGINAL BLEEDING 09/30/16 18:00 Carboprost Tromethamine (Hemabate) 250 mcg ONCE PRN IM VAGINAL BLEEDING 09/30/16 18:00 10/01/16 23:58 DC Misoprostol 1000 mcg 1,000 mcg ONCE PRN [place] VAGINAL BLEEDING 09/30/16 18:00 10/01/16 23:58 DC Oxytocin/Lactated Ringer's 500 ml @ 0 mls/hr TITRATE IV 09/30/16 21:00 10/01/16 23:58 DC 09/30/16 21:02 Fentanyl/ Ropivacaine 100 ml @ ud STK-MED ONCE .ROUTE 09/30/16 23:37 09/30/16 23:38 DC Naloxone HCl (Narcan) 0.1 mg Q2M PRN IV FOR RESP RATE 8 OR LESS 10/01/16 00:30 10/01/16 23:58 DC Hydromorphone HCl (Dilaudid) 0.2 mg Q3H PRN IV PAIN LEVEL 1-5 10/01/16 00:30 10/01/16 23:58 DC Hydromorphone HCl (Dilaudid) 0.4 mg Q3H PRN IV PAIN LEVEL 6-10 10/01/16 00:30 10/01/16 23:58 DC Diphenhydramine HCl (Benadryl) 25 mg Q6H PRN IV ITCHING 10/01/16 00:30 10/01/16 23:58 DC Ondansetron HCl (Zofran Inj) 4 mg Q6H PRN IV NAUSEA AND/OR VOMITING 10/01/16 00:30 10/01/16 23:58 DC 10/01/16 13:02 Fentanyl/ Ropivacaine 100 ml 100 ml EPIDURAL INFUSION EPI 10/01/16 00:30 10/01/16 23:58 DC 10/01/16 14:37 Ampicillin 100 ml @ 100 mls/hr ONCE ONCE IV 10/01/16 06:00 10/01/16 06:59 DC 10/01/16 06:09 Ampicillin (Ampicillin 1 Gm/ NS (Pmx)) 50 ml @ 100 mls/hr Q4H IV 10/01/16 10:00 10/01/16 20:59 DC 10/01/16 17:32 Mineral Oil 30 ml 30 ml ONCE STAT TOP 10/01/16 18:07 10/01/16 18:17 DC Cefazolin Sodium/ Dextrose (Ancef 2 Gm/50 ml (Pmx)) 50 ml @ 100 mls/hr ONCE IV 10/01/16 19:30 10/01/16 23:58 DC Morphine Sulfate (Duramorph) 10 mg STK-MED ONCE .ROUTE 10/01/16 19:32 10/01/16 19:33 DC Metoclopramide HCl (Reglan) 10 mg STK-MED ONCE .ROUTE 10/01/16 19:49 10/01/16 19:50 DC Ketorolac Tromethamine (Toradol) 30 mg STK-MED ONCE .ROUTE 10/01/16 19:49 10/01/16 19:50 DC Fentanyl (Sublimaze) 100 mcg STK-MED ONCE .ROUTE 10/01/16 19:57 10/01/16 19:58 DC Hydromorphone HCl (Dilaudid (Rec)) 0.2 mg PACU ORDER PRN IV MILD PAIN LEVEL 1-3 10/01/16 21:00 10/01/16 23:58 DC Hydromorphone HCl (Dilaudid (Rec)) 0.4 mg PACU ORDER PRN IV MODERATE PAIN LEVEL 4-6 10/01/16 21:00 10/01/16 23:58 DC Hydromorphone HCl (Dilaudid (Rec)) 0.6 mg PACU ORDER PRN IV SEVERE PAIN LEVEL 7-10 10/01/16 21:00 10/01/16 23:58 DC Ondansetron HCl (Zofran Inj) 4 mg PACU ORDER PRN IV NAUSEA AND/OR VOMITING 10/01/16 21:00 10/01/16 23:58 DC Metoclopramide HCl (Reglan) 10 mg PACU ORDER PRN IV NAUSEA AND/OR VOMITING 10/01/16 21:00 10/01/16 23:58 DC Meperidine HCl (Demerol) 25 mg PACU ORDER PRN IV POST-OP RIGORS 10/01/16 21:00 10/01/16 23:58 DC Diphenhydramine HCl (Benadryl) 25 mg PACU ORDER PRN IV PRURITUS 10/01/16 21:00 10/01/16 23:58 DC Naloxone HCl (Narcan) 0.1 mg Q2M PRN IV FOR RESP RATE 8 OR LESS 10/01/16 21:00 10/02/16 20:59 DC Ketorolac Tromethamine (Toradol) 30 mg Q6H PRN IV PAIN 10/01/16 21:00 10/02/16 20:59 DC 10/02/16 19:49 Hydromorphone HCl (Dilaudid) 1 mg Q3H PRN IV BREAKTHROUGH PAIN 10/01/16 21:00 10/02/16 20:59 DC Hydromorphone HCl (Dilaudid) 0.2 mg Q3H PRN IV PAIN LEVEL 1-5 10/01/16 21:00 10/02/16 20:59 DC Hydromorphone HCl (Dilaudid) 0.4 mg Q3H PRN IV PAIN LEVEL 6-10 10/01/16 21:00 10/02/16 20:59 DC Diphenhydramine HCl (Benadryl) 25 mg Q6H PRN IV ITCHING 10/01/16 21:00 10/02/16 20:59 DC Ondansetron HCl 4 mg 4 mg Q6H PRN IV NAUSEA AND/OR VOMITING 10/01/16 21:00 10/02/16 20:59 DC Cefazolin Sodium/ Dextrose (Ancef 2 Gm/50 ml (Pmx)) 50 ml @ 100 mls/hr Q6 IVPB 10/02/16 06:00 10/03/16 00:29 DC 10/03/16 03:46 Acetaminophen/ Codeine Phosphate (Tylenol No.3) 1 tab Q4H PRN PO PAIN LEVEL 4-6 10/02/16 21:00 Acetaminophen/ Codeine Phosphate (Tylenol No.3) 2 tab Q4H PRN PO PAIN LEVEL 7-10 10/02/16 21:00 Oxycodone/ Acetaminophen (Percocet (5/ 325)) 1 tab Q4H PRN PO PAIN LEVEL 4-6 10/02/16 21:00 Oxycodone/ Acetaminophen (Percocet (5/ 325)) 2 tab Q4H PRN PO PAIN LEVEL 7-10 10/02/16 21:00 Ibuprofen (Motrin) 600 mg Q6 PO 10/03/16 00:00 10/04/16 12:14 Simethicone (Mylicon) 160 mg Q8H PRN PO DISTENSION/GAS/BLOATING 10/02/16 00:00 Senna/Docusate Sodium (Senokot-S) 1 tab BID PO 10/02/16 09:00 10/02/16 21:37 Lanolin (Bqo-W-Hlynpz) 1 applic BEDSIDE MEDICATION PRN TOP BEDSIDE FOR MIKEL TO NIPPLES 10/02/16 00:00 10/02/16 05:18 Diphtheria/ Tetanus/Acell Pertussis 0.5 ml 0.5 ml ONCE ONCE IM* 10/04/16 09:00 10/04/16 09:01 DC Oxytocin/Lactated Ringer's 500 ml @ 0 mls/hr ONCE PRN IV For Hemorrhage Management 10/02/16 00:00 Methylergonovine Maleate (Methergine) 0.2 mg ONCE PRN IM VAGINAL BLEEDING 10/02/16 00:00 Carboprost Tromethamine (Hemabate) 250 mcg ONCE PRN IM VAGINAL BLEEDING 10/02/16 00:00 Misoprostol 1000 mcg 1,000 mcg ONCE PRN [place] VAGINAL BLEEDING 10/02/16 00:00 Cefazolin Sodium 50 ml @ 100 mls/hr ONCE IVPB 10/02/16 00:00 10/02/16 00:29 Cancel Oxytocin/Lactated Ringer's 500 ml @ 125 mls/hr Q4H IV 10/01/16 23:48 10/02/16 06:09 Cefazolin Sodium 50 ml @ 100 mls/hr ONCE ONCE IVPB 10/02/16 03:30 10/02/16 03:59 DC 10/02/16 03:36 Lactated Ringer's (Lr) 1,000 ml @ 250 mls/hr Q4H IV 10/02/16 07:00 10/02/16 11:38 DC 10/02/16 06:52 Furosemide (Lasix) 40 mg ONCE ONCE IV 10/02/16 08:00 10/02/16 08:30 DC Furosemide 20 mg 20 mg ONCE ONCE IV 10/02/16 08:30 10/02/16 08:40 DC 10/02/16 09:04 Sodium Chloride (NS) 250 ml @ 0 mls/hr Q0M ONCE IV* 10/04/16 13:08 10/04/16 13:09 UNV incision dry extremities normal plan of discharge a.m. after transfusion discussed with the patient RAHEEM JOSÉ MD Oct 04, 2016 13:27
[2016-10-04 16:45] VITALS: BP 124/66; PULSE 75; RESP 18
== END 2016-10-04 18:25 | disposition home or self-care (01) | DRG 766 ==
LOC: L-D 17:30 → PP1 10-01 23:25
PROVIDERS: ADMIT Obstetrics & Gynecology; ATTEND Obstetrics & Gynecology
PROC: 10D00Z1 Extraction of Products of Conception, Low, Open Approach (ICD-10-PCS; principal; 2016-10-01 20:00)
DX: O62.0 Primary inadequate contractions (principal); Z37.0 Single live birth; Z3A.39 39 weeks gestation of pregnancy
CPT/HCPCS: 62319; 80307; 85025; 85610; 85730; 86592; 86900; 86901; 87340; 90715; 99464; J1940; J0290; J0690; J1885; J2274; J2405; J2590; J2765; J3010; J7040; J7120